=== PATIENT | male | born 1970 | race Two or more races ===

== ENCOUNTER 2021-12-09 21:42 | Emergency (ER) | payer MEDICAID ==
[~2021-12-09] VITALS: Ht 170.2 cm; Wt 74.0 kg
[2021-12-09 23:46] VITALS: BP 127/89
[2021-12-10] MEDS ORDERED: KETOROLAC TROMETH 60MG/2ML VIAL IM ONE (00:30)
== END 2021-12-10 01:17 | disposition home or self-care (01) ==
LOC: ER 21:42
DX: M79.10 Myalgia, unspecified site (principal); V29.99XA Rider (driver) (passenger) of other motorcycle injured in unspecified traffic accident, initial encounter; Y93.89 Activity, other specified; Y92.89 Other specified places as the place of occurrence of the external cause; Y99.8 Other external cause status
CPT/HCPCS: 72100; 96372; 99283; J1885

== ENCOUNTER 2021-12-28 07:48 | Emergency (ER) | payer MEDICAID, OTHER ==
[~2021-12-28] VITALS: Ht 170.2 cm; Wt 70.5 kg
[2021-12-28 08:39] VITALS: BP 154/100
[2021-12-28] MEDS ORDERED: KETOROLAC TROMETH 60MG/2ML VIAL IM ONE (08:45)
[2021-12-28] MEDS ORDERED: IBUP800T26 PO (10:31)
== END 2021-12-28 10:37 | disposition home or self-care (01) ==
LOC: ER 07:48
DX: S16.1XXA Strain of muscle, fascia and tendon at neck level, initial encounter (principal); Z88.0 Allergy status to penicillin; V43.52XA Car driver injured in collision with other type car in traffic accident, initial encounter; Y93.89 Activity, other specified; Y92.488 Other paved roadways as the place of occurrence of the external cause; Y99.8 Other external cause status
CPT/HCPCS: 72040; 96372; 99283; J1885

== ENCOUNTER 2024-06-25 07:18 | Emergency (ER) | payer MEDICAID, OTHER ==
[~2024-06-25] VITALS: Ht 170.2 cm; Wt 69.0 kg
[~2024-06-25 07:18] MED LIST: IBUP-1455 PO
--- NOTE | 2024-06-25 07:39 | ECG ---
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
--- NOTE | 2024-06-25 08:04 | ED.PDOC ---
SOB-HPI HPI Comments 54 y/o M, with no prior medical history presents to the ED for CC of shortness of breath. Patient states, he has been experiencing shortness of breath with associated productive cough [id number]. Patient describes septum to be yellow/brown in appearance. Patient relays, that he was previously sick [id number] ago with flu-like symptoms and severe diarrhea; which had since resolved. Patient endorses, diarrhea returning as of x3days. Patient denies nausea, vom iting, fever, chills, body-aches, or loss of taste and smell. No other symptoms or modifying factors present at this time. Chief Complaint: Shortness of Breath Time Seen by MD: 07:57 Primary Care Provider: RENITA Wilkes notes: Nurses Notes, Medications, Allergies Information Source: Patient Mode of Arrival: Ambulatory Severity: Moderate Timing: Days Duration: Since onset Context: At Rest PE Risk Factors: None History of: None Prehospital treatment: None Modifying Factors: Nothing Associated Signs and Symptoms: Cough If cough with SOB: Yellow, Brown Past Medical History PAST MEDICAL HISTORY: Denies Surgical History: Denies all surgeries Family History Family History: Reviewed,noncontributory to illness, No family hx of Cancer, No family hx of DM, No family hx of Heart payam, No family hx of HTN, No family hx ofKidney payam, No family hx of Liver payam, No family hx of Lung payam, No family hx of Stroke Social History Smoker: Less Than 1 Pack/Day Alcohol: Occasionally Drugs: Denies Drug Use Lives In: Home Constitutional: denies: chills, diaphoresis, fatigue, fever, malaise, sweats, weakness, others EENTM: denies: blurred vision, double vision, ear bleeding, ear discharge, ear drainage, ear pain, ear ringing, eye pain, eye redness, hearing loss, mouth pain, mouth swelling, nasal discharge, nose bleeding, nose congestion, nose pain, photophobia, tearing, throat pain, throat swelling, voice changes, others Respiratory: reports: cough, shortness of breath; denies: hemoptysis, orthopnea, SOB at rest, SOB with excertion, stridor, wheezing, others Cardiovascular: denies: chest pain, dizzy spells, diaphoresis, Dyspnea on exertion, edema, irregular heart beat, left arm pain, lightheadedness, palpitations, PND, syncope, others Gastrointestinal: reports: diarrhea, nausea; denies: abdomen distended, abdominal pain, blood streaked bowels, constipated, dysphagia, difficulty swallowing, hematemesis, melena, poor appetite, poor fluid intake, rectal bleeding, rectal pain, vomiting, others Genitourinary: denies: burning, dysuria, flank pain, frequency, hematuria, inco ntinence, penile discharge, penile sore, pain, testicle pain, testicle swelling, urgency, others Neurological: denies: dizziness, fainting, headache, left sided numbness, left sided weakness, numbness, paresthesia, pre-existing deficit, right sided numbness, right sided weakness, seizure, speech problems, tingling, tremors, weakness, others Musculoskeletal: denies: back pain, gout, joint pain, joint swelling, muscle pain, muscle stiffness, neck pain, others Integumetry: denies: bruises, change in color, change in hair/nails, dryness, laceration, lesions, lumps, rash, wounds, others Allergic/Immunocompromised: denies: Difficulty Healing, Frequent Infections, Hives, Itching, others Hematologic/Lymphatic: denies: anemia, blood clots, easy bleeding, easy bruising, swollen glands, others Endocrine: denies: excessive hunger, excessive sweating, excessive thirst, excessive urination, flushing, intolerance to cold, intolerance to heat, unexplained weight gain, unexplained weight loss, others Psychiatric: denies: anxiety, bipolar disorder, depression, hopeless, panic disorder, schizophrenia, sleepless, suicidal, others All Other Systems: Reviewed and Negative Physical Exam General Appearance: Mild Distress HEENT: Normal ENT Inspection, PERRL/EOMI Neck: Full Range of Motion, Non-Tender, Normal, Normal Inspection Respiratory: Chest Non-Tender, Lungs Clear, No Accessory Muscle Use, No Respiratory Distress, Normal Breath Sounds Cardiovascular: No Edema, No JVD, No Murmur, No Gallop, Normal Peripheral Pulses, Regular Rate/Rhythm Breast Exam: Deferred Gastrointestinal: No Organomegaly, Non Tender, No Pulsatile Mass, Normal Bowel Sounds, Soft Genitalia: Deferred Pelvic: Deferred Rectal: Deferred Extremities: No calf tenderness, Normal capillary refill, Normal inspection, Normal range of motion, Non-tender, No pedal edema Neurologic: Alert, regulatory affairs specialist II-XII nml as Tested, No Motor Deficits, Normal Affect, Normal Mood, No Sensory Deficits Cerebellar Function: Normal Reflexes: Normal Skin: Dry, Warm Peripheral Pulses: 1+ carotid (R), 1+ carotid (L) Lymphatic: No Adenopathy EKG EKG : Pulse Rate (adult): 82 Zap: Normal Cardiac Rhythm: NSR Block: RBBB Was a procedure done? Was a procedure done?: No Differential Dx Differential Diagnosis: Hyponatremia, Pneumonia, Sinusitis, Pharyngitis, URI, Other Comments Hypovolemia enteritis influenza COVID-19 food intolerance food poisoning X-Ray, Labs, Meds, VS Vital Signs Date Time Temp Pulse Resp B/P (MAP) Pulse Ox O2 Delivery O2 Flow Rate FiO2 06/25/24 10:15 70 15 107/70 (82) 98 06/25/24 09:12 77 20 96 Room Air* 0 21 06/25/24 08:16 98.0 77 15 125/77 (93) 95 98.0 06/25/24 08:09 82 06/25/24 07:29 82 06/25/24 07:21 97.7 87 18 125/65 (85) 94 97.7 Lab Test 06/25/24 12:04 06/25/24 08:33 06/25/24 08:06 06/25/24 08:00 Range/Units Troponin I High Sensitivity Pending < 3 L </=54 ng/L Urine Color Light-yellow Yellow Urine Clarity Clear Clear Urine pH 5.5 5.0-9.0 Urine Specific [place] 1.014 1.001-1.035 Urine Protein Negative Negative Urine Ketones Negative Negative Urine Blood Negative Negative /uL Urine Nitrite Negative Negative Urine Bilirubin Negative Negative Urine Urobilinogen Normal Negative mg/dL Urine Leukocyte Esterase Negative Negative /uL Urine RBC None seen 0 - 3 /hpf Urine Microscopic WBC 2 0-3 /HPF Urine Squamous Epithelial Cells None seen <5 /hpf Urine Bacteria None seen None Seen /hpf Urine Glucose Normal Normal mg/dL Influenza Type A Antigen Negative Negative Influenza Type B Antigen Negative Negative SARS-CoV-2 Antigen (Rapid) Negative NEGATIVE White Blood Count 5.1 4.4-10.8 10^3/uL Red Blood Count 4.91 4.5-5.90 10^6/uL Hemoglobin 14.2 13.5-17.5 g/dL Hematocrit 42.2 41.0-53.0 % Mean Corpuscular Volume 86.0 80.0-100.0 fL Mean Corpuscular Hemoglobin 28.9 28.0-32.0 pg Mean Corpuscular Hemoglobin Concent 33.5 32.0-36.0 g/dL Red Cell Distribution Width 14.1 11.8-14.3 % Platelet Count 408 140-450 10^3/uL Mean Platelet Volume 7.5 6.9-10.8 fL Neutrophils (%) (Auto) 55.2 37.0-80.0 % Lymphocytes (%) (Auto) 29.2 10.0-50.0 % Monocytes (%) (Auto) 13.5 H 0.0-12.0 % Eosinophils (%) (Auto) 1.0 0.0-7.0 % Basophils (%) (Auto) 1.1 0.0-2.0 % Neutrophils # (Auto) 2.8 1.6-8.6 10 ^3/uL Lymphocytes # (Auto) 1.5 0.4-5.4 10 ^3/uL Monocytes # (Auto) 0.7 0-1.3 10 ^3/uL Eosinophils # (Auto) 0.1 0-0.8 10 ^3/uL Basophils # (Auto) 0.1 0-0.2 10 ^3/uL Nucleated Red Blood Cells 0.1 % Sodium Level 141 136-145 mmol/L Potassium Level 4.4 3.5-5.1 mmol/L Chloride Level 109 H 98-107 mmol/L Carbon Dioxide Level 26 20-31 mmol/L Anion Gap 6 5-15 Blood Urea Nitrogen 13 9-23 mg/dL Creatinine 1.00 0.700-1.30 mg/dL Glomerular Filtration Rate Calc 88 >90 mL/min BUN/Creatinine Ratio 13.0 10.0-20.0 Serum Glucose 82 74-106 mg/dL Calcium Level 9.6 8.7-10.4 mg/dL Magnesium Level 2.3 1.6-2.6 mg/dL Total Bilirubin 0.5 0.2-1.0 mg/dL Aspartate Amino Transferase (AST) 18 13-40 U/L Alanine Aminotransferase (ALT) 32 7-40 U/L Alkaline Phosphatase 88 46-116 U/L Total Protein 7.1 5.7-8.2 g/dL Albumin 4.3 3.2-4.8 g/dL Lipase 40 12-53 U/L Current Medications Medications (Trade) Dose Ordered Sig/Flako Route Start Time Stop Time Status Last Admin Metoclopramide HCl (Reglan Injection) 10 mg ONCE ONCE IV 06/25/24 08:00 06/25/24 08:01 DC 06/25/24 08:31 Sodium Chloride 1,000 ml @ 1,000 mls/hr Q1H ONCE IVB 06/25/24 08:00 06/25/24 08:59 DC 06/25/24 08:28 [place] [id number] Ph: [phone] DIAGNOSTIC IMAGING Diagnostic Imaging Report : [id number] Signed PATIENT: EMA CORRIGAN ACCT: [id number] UNIT: [id number] : 1970 LOC: ER ROOM / BED: / AGE / SEX: 54 / M ADM STATUS: REG ER SERVICE 9 ORDERING PHYSICIAN: GOLDY RODRIGUEZ MD PROCEDURE(s): CXR2 - CHEST TWO VIEWS ROUTINE REASON: SOB COUGH ORDER NUMBER(s): [id number], ACCESSION NUMBER(s): [id number] CHEST RADIOGRAPH Indication: SOB COUGH Technique: Frontal and lateral view of the chest was obtained Comparison: None FINDINGS: Lines and Tubes: None Lungs: Clear Pleura: No effusion. No pneumothorax. Cardiomediastinal contours: Unremarkable Bones: Unremarkable IMPRESSION: No evidence of acute disease. ATED BY: CHRISTOPHER BRAY MD DICTATED DATE/TIME: 06/25/24803 SIGNED BY: CHRISTOPHER BRAY MD SIGNED DATE/TIME: 06/25/24803 CC: X-Ray, Labs, Meds, VS Comment Course in the emergency department eventful patient presented because of shortness of breath persistent diarrhea and recurrence with nausea Chest x-ray is normal EKG shows normal sinus rhythm at 82 with a right bundle-branch block CBC normal CMP negative Troponin less than three Lipase 40 Magnesium 2.3 Influenza a negative Influenza B negative COVID-19 negative Urine negative Patient will be discharged home to follow up with his PCP Time of 1ST Reevaluation: 08:23 Reevaluation 1ST: Unchanged Patient Education/Counseling: Diagnosis, Treatment, Prognosis Family Education/Counseling: Diagnosis, Treatment, Prognosis, No Family Present Departure 1 Departure Time of Disposition: 12:20 Impression: Primary Impression: Gastroenteritis Additional Impression: Nonspecific syndrome suggestive of viral illness Disposition: 01 HOME / SELF CARE / HOMELESS Condition: Fair Additional Instructions: Push fluids and follow up with your PCP Full liquid diet for the next 48 hours e-Prescriptions Bismuth Subsalicylate (PEPTO-BISMOL TO-GO) 262 Mg Chw 262 MG PO QID for 10 Days, #40 TAB.CHEW Prov: GOLDY RODRIGUEZ MD 06/25/24 Metoclopramide Hcl (Reglan) 10 Mg Tab 10 MG PO BID for 10 Days, #20 TAB Prov: GOLDY RODRIGUEZ MD 06/25/24 Discharged With: Self Critical Care Note Critical Care Time?: No Stability Stability form required: No Heart Score Heart Score: Heart Score Response (Comments) Value History N/A 0 EKG Repolarization Disturb 1 Age 45-64 1 Risk Factors No known risk factors 0 Troponin N/A 0 Total 2 I personally scribed for GOLDY RODRIGUEZ MD ([email or web address]) on 06/25/24 at 08:04. Electronically submitted by Kezia Rollins ([employer]). I personally scribed for GOLDY RODRIGUEZ MD ([email or web address]) on 06/25/24 at 08:11. Electronically submitted by Kezia Rollins ([employer]). I personally scribed for GOLDY RODRIGUEZ MD ([email or web address]) on 06/25/24 at 08:17. Electronically submitted by Kezia Rollins ([employer]). GOLDY RODRIGUEZ MD Jun 25, 2024 08:04
[2024-06-25 08:22] LABS: Basophils # (auto) 0.1 10 ^3/uL (0-0.2); Basophils % (auto) 1.1 % (0.0-2.0); Eosinophils # (auto) 0.1 10 ^3/uL (0-0.8); Hematocrit 42.2 % (41.0-53.0); Hemoglobin 14.2 g/dL (13.5-17.5); Lymphocytes # (auto) 1.5 10 ^3/uL (0.4-5.4); Lymphocytes % (auto) 29.2 % (10.0-50.0); Mean Corpuscular Hemoglobin 28.9 pg (28.0-32.0); Mean Corpuscular Hgb Conc. 33.5 g/dL (32.0-36.0); Monocytes # (auto) 0.7 10 ^3/uL (0-1.3); Monocytes % (auto) 13.5 % (0.0-12.0); Neutrophils # (auto) 2.8 10 ^3/uL (1.6-8.6); Neutrophils % (auto) 55.2 % (37.0-80.0); Nucleated Red Blood Cells % 0.1 %; Platelet Count (auto) 408 10^3/uL (140-450); Red Blood Cells 4.91 10^6/uL (4.5-5.90); Red Cell Distribution Width 14.1 % (11.8-14.3); White Blood Cell 5.1 10^3/uL (4.4-10.8)
[2024-06-25] MEDS: SODIUM CHLORIDE 0.9% 1,000 ML IVB ONE (08:28)
[2024-06-25] MEDS: METOCLOPRAMIDE HCL 5MG/ml INJ 2ml VIAL IV ONE (08:31)
[2024-06-25 08:48] LABS: Urine Bacteria None Seen /hpf (None Seen)
[2024-06-25 08:48] LABS: Alanine Aminotransferase 32 U/L (7-40); Albumin 4.3 g/dL (3.2-4.8); Alkaline Phosphatase 88 U/L (46-116); Anion Gap 6 (5-15); Aspartate Aminotransferase 18 U/L (13-40); Blood Urea Nitrogen 13 mg/dL (9-23); Calcium 9.6 mg/dL (8.7-10.4); Carbon Dioxide 26 mmol/L (20-31); Glucose 82 mg/dL (74-106); Magnesium 2.3 mg/dL (1.6-2.6); Potassium 4.4 mmol/L (3.5-5.1); Sodium 141 mmol/L (136-145); Total Protein 7.1 g/dL (5.7-8.2)
[2024-06-25 08:49] LABS: Bilirubin, Total 0.5 mg/dL (0.2-1.0)
[2024-06-25 08:51] LABS: Urine Blood Negative /uL (Negative); Urine Clarity Clear (Clear); Urine Color Light-Yellow (Yellow); Urine Protein, UAD Negative (Negative); Urine Specific Gravity 1.014 (1.001-1.035); Urine Squamous Epithelial Cell None Seen /hpf (<5); Urine Urobilinogen Normal (Negative); Urine WBC 2 /HPF (0-3); Urine pH 5.5 (5.0-9.0)
[2024-06-25 08:54] LABS: Chloride 109 mmol/L (98-107)
[2024-06-25 09:12] VITALS: PULSE 77; RESP 20; O2SAT 96
[2024-06-25 09:12] LABS: Lipase 40 U/L (12-53)
[2024-06-25 09:24] LABS: COVID19 ANTIGEN SOFIA FIA NEGATIVE (NEGATIVE); Rapid Influenza A Negative (Negative); Rapid Influenza B Negative (Negative)
[2024-06-25] MEDS ORDERED: METO-281 PO (12:24)
[2024-06-25] MEDS ORDERED: BISM262C44 PO (12:24)
[2024-06-25 13:09] VITALS: BP 120/76; PULSE 85; RESP 20; TEMP 97.6; O2SAT 96
== END 2024-06-25 13:12 | disposition home or self-care (01) ==
LOC: ER 07:18
DX: K52.9 Noninfective gastroenteritis and colitis, unspecified (principal); R06.02 Shortness of breath; F17.210 Nicotine dependence, cigarettes, uncomplicated; Z20.822 Contact with and (suspected) exposure to COVID-19; Z79.899 Other long term (current) drug therapy
CPT/HCPCS: 36415; 71046; 80053; 81001; 83690; 83735; 84484; 85025; 87426; 87804; 93005; 96361; 96374; 99285; J2765; J7030